=== PATIENT | female | born 1980 | race African-American/Black ===

== ENCOUNTER 2024-01-06 02:28 | Emergency (ER) | payer OTHER, MEDICAID ==
[~2024-01-06] VITALS: Ht 165.1 cm; Wt 67.0 kg
[2024-01-06 02:34] VITALS: BP 155/114; PULSE 84; RESP 18; TEMP 98.7; O2SAT 96
[2024-01-06 04:08] LABS: TROPONIN I HIGH SENSITIVITY < 4 ng/L (3.0-34)
[2024-01-06] MEDS ORDERED: AMOX-494 MT (04:38)
[2024-01-06] MEDS ORDERED: PRED10TA MT (04:38)
== END 2024-01-06 04:49 | disposition home or self-care (01) ==
LOC: ER 02:28
DX: F43.9 Reaction to severe stress, unspecified (principal); R07.89 Other chest pain
CPT/HCPCS: 36415; 71045; 84484; 99284

== ENCOUNTER 2024-01-29 09:23 | Emergency (ER) | payer OTHER, MEDICAID ==
[~2024-01-29] VITALS: Ht 162.6 cm; Wt 73.0 kg
[~2024-01-29 09:23] MED LIST: AMOX-494 MT; PRED10TA MT
[2024-01-29 09:32] VITALS: O2SAT 95
[2024-01-29] MEDS: ONDANSETRON 4MG ODT PO ONE (10:15)
[2024-01-29] MEDS ORDERED: HYDR453.3 TP (10:40)
[2024-01-29] MEDS ORDERED: ONDA4TAB50 MT (10:40)
[2024-01-29 11:07] VITALS: BP 133/98; PULSE 80; RESP 18; TEMP 98
== END 2024-01-29 11:09 | disposition home or self-care (01) ==
LOC: ER 09:23
DX: L30.9 Dermatitis, unspecified (principal); F43.9 Reaction to severe stress, unspecified
CPT/HCPCS: 99283; 86592; 81025; Q0162

== ENCOUNTER 2024-02-18 11:15 | Emergency (ER) | payer OTHER, MEDICAID ==
[~2024-02-18] VITALS: Ht 149.9 cm; Wt 61.3 kg
[~2024-02-18 11:15] MED LIST changes: +HYDR453.3 TP; +ONDA4TAB50 MT
[2024-02-18 11:24] VITALS: O2SAT 100
[2024-02-18 14:28] VITALS: BP 127/85; PULSE 87; RESP 18; TEMP 98.3
== END 2024-02-18 14:35 | disposition home or self-care (01) ==
LOC: ER 12:30
DX: J06.9 Acute upper respiratory infection, unspecified (principal); Z20.822 Contact with and (suspected) exposure to COVID-19; Z98.890 Other specified postprocedural states
CPT/HCPCS: 87426; 99283

== ENCOUNTER 2024-02-24 10:50 | Emergency (ER) | payer OTHER, MEDICAID ==
[~2024-02-24] VITALS: Ht 149.9 cm; Wt 62.0 kg
[2024-02-24 11:08] VITALS: BP 124/87; PULSE 67; RESP 16; TEMP 98.5; O2SAT 100
== END 2024-02-24 12:33 | disposition home or self-care (01) ==
LOC: ER 10:50
DX: S89.82XA Other specified injuries of left lower leg, initial encounter (principal); Z98.890 Other specified postprocedural states; W18.39XA Other fall on same level, initial encounter; Y93.89 Activity, other specified; Y92.89 Other specified places as the place of occurrence of the external cause; Y99.8 Other external cause status
CPT/HCPCS: 73562; 99283

== ENCOUNTER → 2024-09-10 | Emergency (ER) | payer MEDICAID, OTHER ==
[~2024-09-10] VITALS: Ht 149.9 cm; Wt 64.0 kg
[2024-09-10 09:08] VITALS: O2SAT 99
[2024-09-10 10:18] VITALS: BP 134/80; PULSE 63; RESP 16; TEMP 36.89184; O2SAT 99
== END ==
LOC: ER 09:02
DX: B34.9 Viral infection, unspecified (principal); Z98.890 Other specified postprocedural states; Z79.899 Other long term (current) drug therapy
CPT/HCPCS: 99281

== ENCOUNTER 2025-01-13 09:05 | Emergency (ER) | payer MEDICAID, OTHER ==
[~2025-01-13] VITALS: Ht 149.9 cm; Wt 63.0 kg
[2025-01-13 09:13] VITALS: O2SAT 100
[2025-01-13] MEDS ORDERED: IBUP-2029 MT (10:11)
[2025-01-13] MEDS ORDERED: D-ME473S50 PO (10:12)
[2025-01-13 10:30] VITALS: BP 107/80; PULSE 93; RESP 16; TEMP 37.2; O2SAT 100
== END 2025-01-13 10:36 | disposition home or self-care (01) ==
LOC: ER 09:05
DX: B34.9 Viral infection, unspecified (principal); Z79.899 Other long term (current) drug therapy; Z98.890 Other specified postprocedural states
CPT/HCPCS: 99283

== ENCOUNTER 2025-02-09 08:12 | Emergency (ER) | payer OTHER ==
[~2025-02-09] VITALS: Ht 149.9 cm; Wt 61.4 kg
[~2025-02-09 08:12] MED LIST changes: +D-ME473S50 PO; +IBUP-2029 MT
[2025-02-09 08:24] VITALS: O2SAT 96
[2025-02-09 08:29] VITALS: BP 138/50; PULSE 95; RESP 18; TEMP 36.5; O2SAT 100
[2025-02-09 09:06] LABS: HEMATOCRIT 29.5 % (36.0-48.0); HEMOGLOBIN 8.7 g/dL (12.0-16.0); MEAN CORPUSCULAR HEMOGLOBIN 21.8 pg (28.0-32.0); MEAN CORPUSCULAR HGB CONC 29.5 g/dL (31.0-37.0); PLATELET 576 x1000/uL (130-400); RED BLOOD CELL COUNT 3.99 mill/uL (4.2-5.4); RED CELL DISTRIBUTION WIDTH 19.6 % (11.6-14.6); WHITE BLOOD COUNT 6.3 x1000/uL (4.5-11.0)
[2025-02-09 09:14] LABS: CHLORIDE 107 mEq/L (98-107); POTASSIUM 3.8 mEq/L (3.5-5.1); SODIUM 137 mEq/L (136-145)
[2025-02-09 09:16] LABS: CALCIUM 9.8 mg/dL (8.7-10.4); CARBON DIOXIDE 25 mEq/L (21-32)
[2025-02-09 09:21] LABS: CREATININE 0.6 mg/dL (0.6-1.0); GLUCOSE 103 mg/dL (70-105); UREA NITROGEN BLOOD 9 mg/dL (9-23)
[2025-02-09 09:23] LABS: ALANINE AMINOTRANSFERASE 11 IU/L (10-49); ALBUMIN 4.1 g/dL (3.2-4.8); ASPARTATE AMINOTRANSFERASE 19 IU/L (<34); BILIRUBIN DIRECT 0.1 mg/dL (<=3.0)
[2025-02-09 09:24] LABS: BILIRUBIN TOTAL 0.4 mg/dL (0.1-1.0); PROTEIN TOTAL 7.5 g/dL (6.0-8.3)
[2025-02-09 09:39] LABS: HCG SCREEN NEGATIVE
[2025-02-09 09:51] LABS: CLARITY URINE CLOUDY (CLEAR); COLOR URINE YELLOW (YELLOW); GLUCOSE URINE NEGATIVE (NEGATIVE); KETONES URINE NEGATIVE (NEGATIVE); LEUKOCYTE ESTERASE URINE NEGATIVE (NEGATIVE); NITRITE URINE NEGATIVE (NEGATIVE); OCCULT BLOOD URINE NEGATIVE (NEGATIVE); PH URINE 5.5 (4.5-8.0); PROTEIN URINE NEGATIVE (NEGATIVE); SPECIFIC GRAVITY URINE 1.022 (1.005-1.030); UROBILINOGEN URINE 0.2 E.U./dL (0.2-1.0)
[2025-02-09] MEDS ORDERED: CYAN10003 SL (09:54)
[2025-02-09] MEDS ORDERED: FERR1TAB91 MT (09:54)
[2025-02-09 10:24] LABS: SQUAMOUS EPITHELIAL CELL URINE 2+ /lpf (RARE/1+)
[2025-02-09 10:25] LABS: BACTERIA URINE 1+; RBC URINE 0-2 /hpf (0-2); WBC URINE 0-2 /hpf (0-2); YEAST URINE NONE SEEN
== END 2025-02-09 10:22 | disposition home or self-care (01) ==
LOC: ER 08:12
DX: B34.9 Viral infection, unspecified (principal); D64.9 Anemia, unspecified; R19.7 Diarrhea, unspecified; R11.2 Nausea with vomiting, unspecified; Z98.890 Other specified postprocedural states; Z79.899 Other long term (current) drug therapy
CPT/HCPCS: 36415; 80048; 80076; 81003; 81025; 84703; 85027; 99283

== ENCOUNTER 2025-02-28 08:52 | Emergency (ER) | payer OTHER ==
[~2025-02-28] VITALS: Ht 149.9 cm; Wt 58.0 kg
[~2025-02-28 08:52] MED LIST changes: +CYAN10003 SL; +FERR1TAB91 MT
[2025-02-28 08:54] VITALS: O2SAT 100
[2025-02-28 09:03] VITALS: BP 158/101; PULSE 90; RESP 16; TEMP 36.7; O2SAT 100
== END 2025-02-28 09:44 | disposition home or self-care (01) ==
LOC: ER 08:52
DX: H11.32 Conjunctival hemorrhage, left eye (principal); Z79.899 Other long term (current) drug therapy; Z98.890 Other specified postprocedural states
CPT/HCPCS: 99281

== ENCOUNTER 2025-03-25 08:48 | Emergency (ER) | payer OTHER ==
[~2025-03-25] VITALS: Ht 149.9 cm; Wt 61.2 kg
[2025-03-25 08:52] VITALS: O2SAT 100
[2025-03-25 09:01] VITALS: BP 127/78; PULSE 80; RESP 16; TEMP 36.8; O2SAT 100
[2025-03-25] MEDS ORDERED: IBUP-2029 MT (09:40)
== END 2025-03-25 11:03 | disposition home or self-care (01) ==
LOC: ER 10:43
DX: S90.01XA Contusion of right ankle, initial encounter (principal); Z79.899 Other long term (current) drug therapy; Z98.890 Other specified postprocedural states; X58.XXXA Exposure to other specified factors, initial encounter; Y93.01 Activity, walking, marching and hiking; Y92.89 Other specified places as the place of occurrence of the external cause; Y99.8 Other external cause status
CPT/HCPCS: 73610; 99283

== ENCOUNTER 2025-04-16 13:44 | Emergency (ER) | payer OTHER ==
[~2025-04-16] VITALS: Ht 167.6 cm; Wt 60.0 kg
[2025-04-16 13:54] VITALS: O2SAT 100
[2025-04-16 13:55] VITALS: TEMP 37.2; O2SAT 100
[2025-04-16] MEDS ORDERED: IBUP-2029 MT (15:05)
[2025-04-16 15:23] VITALS: BP 112/82; PULSE 82; RESP 16
[2025-04-16] MEDS: IBUPROFEN 400MG TABLET PO ONE (15:23)
== END 2025-04-16 15:25 | disposition home or self-care (01) ==
LOC: ER 13:44
DX: K08.89 Other specified disorders of teeth and supporting structures (principal); Z98.890 Other specified postprocedural states; Z79.899 Other long term (current) drug therapy
CPT/HCPCS: 99282

== ENCOUNTER 2025-06-30 12:21 | Emergency (ER) | payer OTHER ==
[~2025-06-30] VITALS: Ht 152.4 cm; Wt 61.0 kg
[2025-06-30 12:25] VITALS: O2SAT 100
[2025-06-30] MEDS: BACITRACIN ZINC OINT UDPKT TOP ONE (12:45)
[2025-06-30] MEDS: TETANUS, DIPHTHERIA, PERTUSSIS VAC/PF 0.5ML (>10YR OLD) IM ONE (13:06)
[2025-06-30] MEDS: ACETAMINOPHEN 325MG TABLET PO ONE (13:07)
[2025-06-30] MEDS ORDERED: BO1 TP (13:31)
[2025-06-30] MEDS ORDERED: NAPR-681 MT (13:31)
[2025-06-30 13:50] VITALS: BP 127/81; PULSE 82; RESP 14; TEMP 36.7; O2SAT 100
== END 2025-06-30 13:52 | disposition home or self-care (01) ==
LOC: ER 12:21
DX: S00.83XA Contusion of other part of head, initial encounter (principal); S80.211A Abrasion, right knee, initial encounter; S80.212A Abrasion, left knee, initial encounter; Z98.890 Other specified postprocedural states; W01.0XXA Fall on same level from slipping, tripping and stumbling without subsequent striking against object, initial encounter; Y93.01 Activity, walking, marching and hiking; Y92.89 Other specified places as the place of occurrence of the external cause; Y99.8 Other external cause status
CPT/HCPCS: 73562; 90471; 90715; 99283